=== PATIENT | female | born 1995 | race Caucasian/White ===

== ENCOUNTER 2020-06-09 23:13 | Emergency (ER) | payer SELFPAY ==
--- NOTE | 2020-06-09 23:54 | RAD ---
EXAM: 3 views of the right foot HISTORY: Foot pain after dropping a weight on foot COMPARISON: None FINDINGS: 3 views of the foot shows no evidence of acute fracture or dislocation. Mild soft tissue sw elling is seen. No degenerative changes are present. IMPRESSION: No evidence of acute osseous abnormality.
== END 2020-06-10 00:27 | disposition home or self-care (01) ==
LOC: ERS 23:13
DX: S90.31XA Contusion of right foot, initial encounter (principal); F32.9 Major depressive disorder, single episode, unspecified; F41.9 Anxiety disorder, unspecified; W20.8XXA Other cause of strike by thrown, projected or falling object, initial encounter

== ENCOUNTER 2020-06-17 13:42 | Emergency (ER) | payer SELFPAY ==
--- NOTE | 2020-06-17 14:04 | RAD ---
XR Foot Rt 3 View STANDARD HISTORY: Injury, right foot pain COMPARISON: 06/09/2020 FINDINGS: No fracture or dislocation is identified.
[2020-06-17] MEDS ORDERED: Acetaminophen 500 MG TAB ONE (16:22)
--- NOTE | 2020-06-17 17:20 | CT ---
CT OF RIGHT FOOT PERFORMED WITHOUT CONTRAST: 06/17/20 HISTORY: Right foot injury on 06/09/20. Patient dropped a weight on foot. Persistent pain and swelling. COMPARISON: Plain film examination of 06/09 and 06/17/20. Evaluate for Lisfranc joint injury. There are no fractures identified. No malalignment at the level of the Lisfranc joint. This does not exclude a Lisfranc ligament injury and MRI would be recommended if this is of clinical concern. The s ubtalar joint is unremarkable. I do not see any signs of any talar beak fracture or anterior process calcaneus fracture. IMPRESSION: Unremarkable right foot. POS: OFF
== END 2020-06-17 18:05 | disposition home or self-care (01) ==
LOC: ERS 13:42
DX: S93.601A Unspecified sprain of right foot, initial encounter (principal); F41.9 Anxiety disorder, unspecified; F32.9 Major depressive disorder, single episode, unspecified; W20.8XXA Other cause of strike by thrown, projected or falling object, initial encounter